=== PATIENT | female | born 1965 | race Caucasian/White ===

== ENCOUNTER 2017-10-04 15:10 | Emergency (ER) | payer BC ==
[~2017-10-04] VITALS: Ht 152.4 cm; Wt 61.7 kg
[2017-10-04 15:13] VITALS: Ht 152.4 cm; Wt 61.7 kg
[2017-10-04] MEDS ORDERED: IBUPROFEN 600 MG TAB PO ONE (16:00)
[2017-10-04] MEDS ORDERED: PENI500T PO (16:50)
[2017-10-04] MEDS ORDERED: TYL500 PO (16:51)
--- NOTE | 2017-10-04 17:25 | ERD ---
ER Documentation Chief Complaint Chief Complaint complains of fever x 3 days HPI This is a 52-year-old female that presents to the ER with fever, body pain, sore throat since Thursday. She does not have a cough. She denies any abdominal pain. She denies any urinary frequency or dysuria. Patient denies any nausea vomiting or diarrhea. She denies any drinking or smoking. Take Tylenol this morning for her fever, however fever continues to return. ROS 12 point review of systems was done, all negative except per HPI. Medications Home Meds Active Scripts Acetaminophen* (Tylenol*) 500 Mg Tab, 500 MG PO Q4H Y for MILD PAIN LEVEL 1-3 for 3 Days, TAB Prov:JOSHUACLAYTON C 10/04/17 Penicillin V Potassium* (Penicillin V K*) 500 Mg Tab, 500 MG PO BID for 10 Days , TAB Prov:JOSHUA,CLAYTON C 10/04/17 Reported Medications [None] No Conflict Check 04/18/12 Allergies Allergies: Coded Allergies: No Known Allergies (Verified Allergy, Unknown, 04/18/12) PMhx/Soc History of Surgery: Yes (C SECTION) Anesthesia Reaction: No Hx Neurological Disorder: No Hx Respiratory Disorders: No Hx Cardiac Disorders: No Hx Psychiatric Problems: No Hx Miscellaneous Medical Probl: No Hx Alcohol Use: No Hx Substance Use: No Hx Tobacco Use: No Smoking Status: Never smoker Physical Exam Vitals Vital Signs Date Time Temp Pulse Resp B/P Pulse Ox O2 Delivery O2 Flow Rate FiO2 10/04/17 15:13 100.5 94 20 141/67 99 Physical Exam GENERAL: The patient is well-developed, well-nourished, in no acute distress. NECK: Cervical spine is non tender with no step off. Supple, no nuchal rigidity HEENT: Atraumatic. Pupils equal, round and reactive to light. Extraocular muscles are grossly intact. Conjunctivae pink, no discharge. Bilateral tympanic membranes are clear with no evidence of erythema, effusion or dulling of the light reflex. Tonsilar erythema with tonsillar exudates, no uvular deviation no kissing tonsils. RESPIRATORY: Clear to auscultation bilaterally. There are no rales, wheezes or rhonchi. HEART: Regular rate and rhythm. No murmurs, clicks, rubs or gallops. EXTREMITIES: No clubbing or cyanosis. Full range of motion. Grossly neurovascularly intact. NEUROLOGIC: Alert and oriented. Cranial nerves II through XII are intact. SKIN: There is no rash. The skin is warm and dry. Results 24 hrs Current Medications Medications (Trade) Dose Ordered Sig/Benjamín Route PRN Reason Start Time Stop Time Status Last Admin Dose Admin Ibuprofen (Motrin) 600 mg ONCE ONCE PO 10/04/17 16:00 10/04/17 16:01 DC 10/04/17 15:47 Procedures/MDM This is a 52-year-old that presents to the ER with fever, body pain and sore throat. Patient did test positive for strep throat likely the cause of her fever. Patient did not have the flu, she does not have any meningeal signs suspicion for meningitis or sepsis is low. She is extremely well-appearing. Patient does not have a cough suspicion for pneumonia is low. She has denied any abdominal pain or urinary symptoms suspicion for acute abdominal etiology or UTI is low. Suspicion for endocarditis is low, she does not have any history of IV drug use and there is no murmurs on physical examination. Additionally patient does not have any chest pain or shortness of breath. She will be sent home with penicillin. She is to follow-up with her primary care doctor with sooner if symptoms worsen. My medical decision making shared with the patient she understands and agrees with plan. Departure Diagnosis: Primary Impression: Strep throat Condition: Stable Patient Instructions: Strep Throat Additional Instructions: Llame al doctor RUBEN y surekha alessia ADRIANE PARA DENTRO DE 1-2 RAYMOND.Dgale a la secretaria que nosotros le instruimos hacer esta adriane.Avise o llame si lanza condicin se empeora antes de la adriane. Regresa aqui si peor o no mejor. CLAYTON LEWIS Oct 04, 2017 17:25
[2017-10-04] MEDS ORDERED: ACETAMINOPHEN 325 MG TAB ONE (17:34)
[2017-10-04] MEDS ORDERED: ACETAMINOPHEN 325 MG TAB PO ONE (18:00)
== END 2017-10-04 17:46 | disposition home or self-care (01) ==
LOC: FTE 15:10
DX: J02.0 Streptococcal pharyngitis (principal)
CPT/HCPCS: 87400; 87880; 99283

== ENCOUNTER 2018-03-10 16:19 | Emergency (ER) | END 2018-03-10 19:05 | disposition home or self-care (01) ==